=== PATIENT | female | born 1955 | race Asian ===

== ENCOUNTER 2018-07-26 16:20 | Outpatient (CLI) | payer OTHER | END 2018-07-26 19:44 | disposition home or self-care (01) | LOC: RAD 16:20 | DX: M25.462 Effusion, left knee (principal) ==

== ENCOUNTER 2018-08-04 09:20 | Outpatient (CLI) | payer OTHER | END 2018-08-04 19:10 | disposition home or self-care (01) | LOC: MAMMO 09:20 | DX: Z12.31 Encounter for screening mammogram for malignant neoplasm of breast (principal); Z13.820 Encounter for screening for osteoporosis ==

== ENCOUNTER 2021-03-04 09:34 | Outpatient (CLI) | payer OTHER | END 2021-03-04 21:53 | disposition home or self-care (01) | LOC: MRI 09:34 | PROVIDERS: ATTEND Neurological Surgery | DX: M54.16 Radiculopathy, lumbar region (principal) ==

== ENCOUNTER 2021-04-11 07:10 | Outpatient (CLI) | payer OTHER | END 2021-04-11 19:16 | disposition home or self-care (01) | LOC: RAD 07:10 | PROVIDERS: ATTEND Neurological Surgery | DX: M54.16 Radiculopathy, lumbar region (principal) ==

== ENCOUNTER 2021-12-16 14:24 | Outpatient (CLI) | payer OTHER | END 2021-12-16 19:10 | disposition home or self-care (01) | LOC: MAMMO 14:24 | PROVIDERS: ATTEND Nurse Practitioner Family | DX: Z12.31 Encounter for screening mammogram for malignant neoplasm of breast (principal) ==

== ENCOUNTER 2022-07-29 14:17 | Observation (INO) | payer OTHER ==
[~2022-07-29] VITALS: Ht 162.6 cm; Wt 62.3 kg
[2022-07-29] MEDS ORDERED: XALATAN0.005 % OPTH (15:34)
[2022-07-29] MEDS ORDERED: TYLENOL 8 HOUR650 MG PO (15:34)
[2022-07-29 16:54] VITALS: BP 120/72; TEMP 98.2; Ht 162.6 cm; Wt 62.3 kg
[2022-07-29 16:57] LABS: PLATELET COUNT 245 K/uL (152-353)
[2022-07-29 17:09] LABS: POTASSIUM 3.1 mmol/L (3.6-5.2)
[2022-07-29 20:13] VITALS: BP 116/75; TEMP 98.6
[2022-07-30] VITALS: BP 111/65; TEMP 98.6
[2022-07-30 04:00] VITALS: BP 112/62; TEMP 98.6
[2022-07-30 04:51] LABS: PLATELET COUNT 255 K/uL (152-353)
[2022-07-30 05:20] LABS: POTASSIUM 3.8 mmol/L (3.6-5.2)
[2022-07-30 08:00] VITALS: BP 113/69; TEMP 98.5
[2022-07-30] MEDS ORDERED: ALBU90AE13 INH (11:25)
[2022-07-30] MEDS ORDERED: PRED20TA27 PO (11:26)
[2022-07-30] MEDS ORDERED: CEFD300C2 PO (11:26)
[2022-07-30 12:00] VITALS: BP 107/63; TEMP 98.1
== END 2022-07-30 12:41 | disposition home or self-care (01) ==
LOC: MED/SURG 14:17
PROVIDERS: ADMIT Internal Medicine; ATTEND Internal Medicine
DX: J44.0 Chronic obstructive pulmonary disease with (acute) lower respiratory infection (principal); J18.8 Other pneumonia, unspecified organism; J44.1 Chronic obstructive pulmonary disease with (acute) exacerbation
CPT/HCPCS: 36415; 80053; 85027; 87040; 87502; 87635; 94664; 94760; 96365; 96374; 96375; 99220; G0378; G0379; J0456; J0696; J2930; U0003

== ENCOUNTER 2022-08-11 07:58 | Outpatient (CLI) | payer OTHER ==
[~2022-08-11 07:58] MED LIST: ALBU90AE13 INH; CEFD300C2 PO; PRED20TA27 PO; TYLENOL 8 HOUR650 MG PO; XALATAN0.005 % OPTH
== END 2022-08-11 19:17 | disposition home or self-care (01) ==
LOC: CT 07:58
PROVIDERS: ATTEND Nurse Practitioner Family
DX: F17.210 Nicotine dependence, cigarettes, uncomplicated (principal)

== ENCOUNTER 2022-12-18 08:13 | Outpatient (CLI) | payer OTHER | END 2022-12-18 18:59 | disposition home or self-care (01) | LOC: MAMMO 08:13 | PROVIDERS: ATTEND Nurse Practitioner Family | DX: Z12.31 Encounter for screening mammogram for malignant neoplasm of breast (principal) ==